=== PATIENT | male | born 1965 | race Caucasian/White ===

== ENCOUNTER 2017-04-30 22:26 | Inpatient (IN) | payer OTHER ==
[~2017-04-30] VITALS: Ht 177.8 cm; Wt 105.0 kg
[2017-04-30 22:28] VITALS: BP 172/104
[2017-04-30 23:11] LABS: URINE BILIRUBIN 2+ (Negative); URINE BLOOD 3+ (Negative); URINE COLOR BROWN; URINE GLUCOSE-RANDOM* NEGATIVE (Negative); URINE KETONES TRACE (Negative); URINE NITRITE POSITIVE (Negative); URINE PROTEIN (DIPSTICK) 2+ (Negative); URINE SPECIFIC GRAVITY >= 1.030 (1.003-1.035)
[2017-04-30 23:17] LABS: ABSOLUTE NEUTROPHILS 13.1 thou/uL (1.4-8.2); BASOPHILS 0.8 % (0.0-2.0); EOSINOPHILS 3.3 % (0.0-3.0); HEMATOCRIT 45.4 % (42.0-52.0); HEMOGLOBIN 15.4 gm/dL (14.0-18.0); LYMPHOCYTES 19.9 % (24.0-44.0); MCH 31.3 pg (26.0-34.0); MCHC 33.9 g/dL (28.0-37.0); MCV 92.4 fL (80.0-100.0); MONOCYTES 7.6 % (1.0-8.0); PLATELET COUNT 237 thou/uL (150-400); POLYS 68.4 % (36.0-66.0); RBC 4.91 mil/uL (4.50-6.00); RDW 13.7 % (10.5-14.5); WBC 19.2 thou/uL (4.0-11.0)
[2017-04-30 23:18] LABS: MANUAL DIFF NO
[2017-04-30 23:18] LABS: ICTOTEST (BILI CONFIRMATORY) Positive (Negative)
[2017-04-30 23:20] LABS: CALCIUM 9.3 mg/dL (8.5-10.1); CREATININE 1.1 mg/dL (0.7-1.3); POTASSIUM 3.7 mmol/L (3.5-5.1)
[2017-04-30 23:26] LABS: CALCIUM OXALATE 4-10 Moderate /LPF (None Seen); CASTS None Seen /LPF (None Seen); CRYSTALS None Seen /LPF (None Seen); SQUAMOUS None Seen /LPF (0-3); URINE RBC >20 Many /HPF (0-2)
[2017-05-01] VITALS (7 sets, daily range): BP systolic 132–181; BP diastolic 73–99
[2017-05-01 04:40] LABS: HEMATOCRIT 43.1 % (42.0-52.0); HEMOGLOBIN 14.6 gm/dL (14.0-18.0); MCH 31.2 pg (26.0-34.0); MCHC 33.8 g/dL (28.0-37.0); MCV 92.3 fL (80.0-100.0); RBC 4.67 mil/uL (4.50-6.00); RDW 13.7 % (10.5-14.5); WBC 18.3 thou/uL (4.0-11.0)
[2017-05-01 05:04] LABS: ALBUMIN 3.4 g/dL (3.4-5.0); ALKALINE PHOSPHATASE 79 U/L (46-116); ANION GAP 8 mmol/L (7-16); BUN 15 mg/dL (7-18); CHLORIDE 105 mmol/L (98-107); CHOLESTEROL 210 mg/dL (<200); CO2 27 mmol/L (21-32); CREATININE 1.3 mg/dL (0.7-1.3); GLUCOSE 134 mg/dL (74-106); HDL CHOLESTEROL 38 mg/dL (>40); LDL CHOLESTEROL 149 mg/dL (<100); SGOT 18 U/L (15-37); SGPT 34 U/L (30-65); SODIUM 140 mmol/L (136-145); TC:HDL 5.5 Ratio (Not establshd); TOTAL BILIRUBIN 0.4 mg/dL (<0.1-1.0); TRIGLYCERIDE 116 mg/dL (<150); VLDL 23 mg/dL (<40)
[2017-05-02 04:00] VITALS: BP 142/83
[2017-05-02 07:49] VITALS: BP 135/94
[2017-05-02 11:08] VITALS: BP 135/94
[2017-05-02 11:26] VITALS: BP 135/94
== END 2017-05-02 11:26 | disposition home or self-care (01) | DRG 694 ==
LOC: ER 22:26 → EROBS 05-01 00:03 → 4E 05-01 00:28
PROVIDERS: Emergency Medicine; Nurse Practitioner Family
DX: N13.2 Hydronephrosis with renal and ureteral calculous obstruction (principal); N39.0 Urinary tract infection, site not specified; D72.829 Elevated white blood cell count, unspecified; K21.9 Gastro-esophageal reflux disease without esophagitis; I10 Essential (primary) hypertension; F17.210 Nicotine dependence, cigarettes, uncomplicated; R03.0 Elevated blood-pressure reading, without diagnosis of hypertension; E78.5 Hyperlipidemia, unspecified; Z79.899 Other long term (current) drug therapy; Z82.49 Family history of ischemic heart disease and other diseases of the circulatory system; Z83.3 Family history of diabetes mellitus
CPT/HCPCS: 10084

== ENCOUNTER 2017-12-27 06:52 | Emergency (ER) | payer OTHER ==
[~2017-12-27] VITALS: Ht 177.8 cm; Wt 106.6 kg
[2017-12-27 07:16] LABS: ABSOLUTE NEUTROPHILS 8.1 thou/uL (1.4-8.2); BASOPHILS 0.6 % (0.0-2.0); EOSINOPHILS 3.2 % (0.0-3.0); HEMATOCRIT 47.9 % (42.0-52.0); HEMOGLOBIN 16.2 gm/dL (14.0-18.0); LYMPHOCYTES 23.4 % (24.0-44.0); MCH 31.3 pg (26.0-34.0); MCHC 33.9 g/dL (28.0-37.0); MCV 92.2 fL (80.0-100.0); MONOCYTES 6.5 % (1.0-8.0); PLATELET COUNT 255 thou/uL (150-400); POLYS 66.3 % (36.0-66.0); WBC 12.3 thou/uL (4.0-11.0)
[2017-12-27 07:21] LABS: CALCIUM 9.4 mg/dL (8.5-10.1); POTASSIUM 4.1 mmol/L (3.5-5.1)
[2017-12-27 08:02] LABS: URINE BILIRUBIN NEGATIVE (Negative); URINE BLOOD TRACE (Negative); URINE CLARITY CLEAR; URINE COLOR YELLOW; URINE GLUCOSE-RANDOM* NEGATIVE (Negative); URINE KETONES NEGATIVE (Negative); URINE LEUKOCYTES-REFLEX NEGATIVE (Negative); URINE NITRITE-REFLEX NEGATIVE (Negative); URINE PROTEIN (DIPSTICK) NEGATIVE (Negative); URINE UROBILINOGEN 0.2 E.U./dl (0.2-1.0)
[2017-12-27] MEDS ORDERED: SENNA-DOCUSATE1 EACH PO (08:24)
[2017-12-27] MEDS ORDERED: IBUPROFEN 600600 M1 PO (08:24)
[2017-12-27] MEDS ORDERED: NORCO 5-325 TA1 EACH PO (08:24)
[2017-12-27 08:51] VITALS: BP 161/94
== END 2017-12-27 08:52 | disposition left against medical advice (07) ==
LOC: ER 06:52
PROVIDERS: Emergency Medicine
DX: R10.31 Right lower quadrant pain (principal); R31.29 Other microscopic hematuria; K21.9 Gastro-esophageal reflux disease without esophagitis; F17.210 Nicotine dependence, cigarettes, uncomplicated; Z87.442 Personal history of urinary calculi

== ENCOUNTER 2019-07-17 07:30 | Inpatient (IN) | payer OTHER ==
[~2019-07-17] VITALS: Ht 177.8 cm; Wt 104.9 kg
[~2019-07-17 07:30] MED LIST: IBUPROFEN 600600 M1 PO; NORCO 5-325 TA1 EACH PO; SENNA-DOCUSATE1 EACH PO
[2019-07-17 07:39] VITALS: BP 153/108
[2019-07-17 08:29] LABS: ABSOLUTE NEUTROPHILS 6.3 thou/uL (1.4-8.2); BASOPHILS 1.2 % (0.0-2.0); EOSINOPHILS 6.4 % (0.0-3.0); HEMATOCRIT 45.2 % (42.0-52.0); HEMOGLOBIN 15.9 gm/dL (14.0-18.0); LYMPHOCYTES 24.1 % (24.0-44.0); MCH 32.2 pg (26.0-34.0); MCHC 35.1 g/dL (28.0-37.0); MCV 91.8 fL (80.0-100.0); PLATELET COUNT 246 thou/uL (150-400); POLYS 61.3 % (36.0-66.0); RBC 4.93 mil/uL (4.50-6.00); RDW 13.3 % (10.5-14.5); WBC 10.4 thou/uL (4.0-11.0)
[2019-07-17 08:36] LABS: CREATININE 0.9 mg/dL (0.7-1.3); POTASSIUM 4.3 mmol/L (3.5-5.1)
[2019-07-17 08:46] LABS: APTT 30.7 Seconds (24.5-32.8); D-DIMER 0.34 ug/mLFEU (0.19-0.50); PROTIME 9.7 Seconds (9.3-11.4)
[2019-07-17 08:47] LABS: ALBUMIN 3.6 g/dL (3.4-5.0); MAGNESIUM 1.9 mg/dL (1.8-2.4); TOTAL BILIRUBIN 0.3 mg/dL (<0.1-1.0); TOTAL PROTEIN 7.3 g/dL (6.4-8.2)
[2019-07-17 08:52] LABS: TROPONIN-I 1.92 ng/mL (<0.06)
[2019-07-17 09:52] VITALS: BP 149/93
[2019-07-17 10:37] VITALS: BP 140/93
[2019-07-17 11:04] VITALS: BP 161/100
--- NOTE | 2019-07-17 12:07 | 2DMMODE ---
[facility] [address] [place] [address] 2 D/M-MODE ECHOCARDIOGRAM Name: PINAUMESH Room #: 215-P [facility] IN .R.#: [id number] Admission: 07/17/19 Attend Phys: Raymon Potter, Discharge: Date of : 69 Date of Service: 07/17/19 1206 Report #: [id number] THIS REPORT FOR: //name// APPROVED REPORT Study performed: 07/17/2019 11:25:57 EXAM: Comprehensive 2D, Doppler, and color-flow Echocardiogram Patient Location: ER Room #: 9 Status: routine BSA: 2.24 HR: 85 bpm BP: 149/93 mmHg Rhythm: NSR Other Information Study Quality: Adequate Indications Elevated Troponin Chest Pain Hypertension/HDD nstemi 2D Dimensions RVDd: 34.98 mm IVSd: 12.82 (7-11mm) LVOT Diam: 20.59 (18-24mm) LVDd: 53.46 mm PWd: 14.64 (7-11mm) Ascending Ao: 28.46 (22-36mm) LVDs: 36.18 (25-40mm) Aortic Root: 28.23 mm IVC: 16.00 mm Volumes Left Atrial Volume (Systole) Single Plane 4CH: 58.26 mL Single Plane 2CH: 46.18 mL LA ESV Index: 25.00 mL/m2 Aortic Valve AoV Peak Jez.: 1.34 m/s AO Peak Gr.: 7.13 mmHg LVOT Max P.04 mmHg LVOT Max V: 1.00 m/s ELIF Vmax: 2.50 cm2 Mitral Valve [facility] [address] [address] 2 D/M-MODE ECHOCARDIOGRAM Name: SILVANAUMESH Room #: 215-P [facility] IN [facility]#: [id number] Admission: 07/17/19 Attend Phys: Raymon Potter, Discharge: Date of : 69 Date of Service: 07/17/19 1206 Report #: [id number] E/A Ratio: 0.7 MV Decel. Time: 210.15 ms MV E Max Jez.: 0.84 m/s MV A Jez.: 1.18 m/s MV PHT: 60.94 ms IVRT: 119.95 ms Pulmonary Valve PV Peak Jez.: 0.80 m/s PV Peak Gr.: 2.57 mmHg Pulmonary Vein P Vein S: 0.48 m/s P Vein A: 0.25 m/s P Vein D: 0.28 m/s P Vein A Dur.: 106.1 msec P Vein S/D Ratio: 1.71 Left Ventricle The left ventricle is normal size. There is hypokinesis in the apical wall. Mild concentric left ventricular hypertrophy. The overall left ventricular systolic function appears normal. LVEF is 55%. Grade I - abnormal relaxation pattern. Right Ventricle The right ventricle is normal size. The right ventricular systolic function is normal. Atria The left atrium size is normal. Right atrium is at the upper limits of normal. Aortic Valve The aortic valve is normal in structure. No aortic regurgitation is present. There is no aortic valvular stenosis. Mitral Valve The mitral valve is normal in structure. There is no mitral valve regurgitation noted. No evidence of mitral valve stenosis. Tricuspid Valve The tricuspid valve is normal in structure. There is no tricuspid valve regurgitation noted. Pulmonic Valve The pulmonary valve is normal in structure. There is no pulmonic valvular regurgitation. [employer] [facility] [address] [place] [address] 2 D/M-MODE ECHOCARDIOGRAM Name: UMESH PINA Room #: 215-P [facility] IN M.R.#: [id number] Admission: 07/17/19 Attend Phys: Raymon Potter, Discharge: Date of : 69 Date of Service: 07/17/19 1206 Report #: [id number] The aortic root is normal in size. IVC is normal in size and collapses >50% with inspiration. Pericardium There is no pericardial effusion. <Conclusion> The left ventricle is normal size. Mild concentric left ventricular hypertrophy. The overall left ventricular systolic function appears normal. Grade I - abnormal relaxation pattern. The right ventricle is normal size. The left atrium size is normal. The aortic valve is normal in structure. There is no mitral valve regurgitation noted. There is no tricuspid valve regurgitation noted. <ELECTRONICALLY SIGNED> By: Cristiano Batista MD 07/17/19 1206 05 05 Cristiano Batista MD /INF
[2019-07-17 13:45] VITALS: BP 148/95
--- NOTE | 2019-07-17 13:45 | NUR ---
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 VSS, NSR, LUNGS CLEAR RA SART IS 98%. R GROIN CATH SITE INTACT NO HEMATOMA OR BRUIT HEARD. INSTRUCTED BR X 3 HOURS. SEE DATA FLOW SHEET FOR VS AND GROIN CHECKS. WILL CONTINUE TO MONITER AND CARE FOR PT PER PLAN OF CARE
--- NOTE | 2019-07-17 15:19 | CATHLAB ---
[facility] [address] [place] [address] INVASIVE PROCEDURE REPORT Name: UMESH PINA Room #: 215-P ADM IN M.R.#: [id number] Admission: 07/17/19 Attend Phys: Raymon Potter, Discharge: Date of : 69 Date of Service: 07/17/19 1518 Report #: [id number] THIS REPORT FOR: //name// APPROVED REPORT Study performed: 07/17/2019 12:02:07 Patient Details The patient is a 54 year-old male Event Personnel Cristiano Batista Mainframe Consultant, Cristiano Batista Mainframe Consultant Procedures Performed Left Heart Cath w/or w/o Coronaries [id number] [facility] [address] w/wo Plasty Single LAD [id number] Indication Non-STEMI , Dyspnea, Chest pain Risk Factors Hypercholesterolemia, Hypertension, Tobacco History () Procedure Narrative The Right Groin^ was infiltrated with 1% Lidocaine subcutaneous anesthesia. A PINNACLE 6FR Sheath #[id number] sheath was inserted into the RFA^. Coronary angiography was performed using coronary diagnostic catheters. The right coronary system was accessed and visualized with a JR4 catheter. The left coronary system was accessed and visualized with a JL4 catheter. The left ventricle was accessed and visualized with a PIGTAIL catheter. Left ventricular/Aortic Valve gradient assessed via catheter pullback. Left ventriculogram was performed in CARMONA projection. Closure device was deployed with a 6 Fr MYNX CONTROL 6F/7F #[id number]. The patient tolerated the procedure well and there were no complications associated with the procedure. There was no hematoma. Intraoperative Conscious Sedation Sedation start time: 12.18 Case end Time: 13:08 Fentanyl 100 mcg Versed 2 mg Fluoro Time: 10:09 minutes Dose: DAP 63146 cGycm2 2030 mGy [facility] [place] [address] INVASIVE PROCEDURE REPORT Name: UMESH PINA Room #: 215-P [facility] IN .R.#: [id number] Admission: 07/17/19 Attend Phys: Raymon Potter, Discharge: Date of : 69 Date of Service: 07/17/19 1518 Report #: [id number] Contrast Type and Amount: Omnipaque 220 ml Coronary Angiography The patient's coronary anatomy is co- dominant. Diagnostic Cath Left Main This is a large caliber vessel, patent with no flow-limiting lesions. LAD There is a moderate to large size caliber vessel, traversing the anterior wall and wrapping around the apex. There is a severe occlusion in the proximal segment, 95%. Diagonal 1 Originates from the midsegment of the LAD, patent with no flow-limiting lesions. Diagonal 2 This is a patent vessel, with no flow-limiting lesions. Circumflex This is a codominant vessel, with mild disease in the mid segment, 30%. OM1 This is a moderate size caliber vessel, divides into 2 branches. This vessel is patent with no flow-limiting lesions. OM2 Branches from the distal left circumflex artery, patent with no flow-limiting lesions. Right Coronary This is a patent vessel, with mild disease in the proximal segment, 20%. R PDA This is a patent vessel, with mild disease in the mid segment, 30%. Left Ventriculography The left ventricle is normal in size with abnormal contractility. The left ventricular ejection fraction is estimated to be 40%. There is hypokinesis of the anterior and apical regions. Hemodynamics The aortic pressure is 142/90 mmHg with a mean of 111 mmHg. The left ventricular pressure is 134/17 mmHg with a mean of mmHg. The left ventricular end diastolic pressure is 29 mmHg. There was no gradient across the aortic valve upon pullback. Pullback from the left ventricle to the aorta revealed no gradient across the aortic valve. PCI Technique Lesion Percutaneous coronary intervention was performed on the proximal left anterior descending artery segment. The lesion stenosis prior to intervention was 95% with ELSY 3 flow. A DeciZiumTA 6FR XB 3.5 #[id number] Guide Catheter was used to engage the ostium. A Luge Wire .014 x 182CM #[id number] Interventional Guidewire was used to cross the lesion. [facility] [address] [place] [address] INVASIVE PROCEDURE REPORT Name: UMESH PINA Room #: 215-P ADM IN M.R.#: [id number] Admission: 07/17/19 Attend Phys: Raymon Potter, Discharge: Date of : 69 Date of Service: 07/17/19 1518 Report #: [id number] BALLOON DILATION A Balloon catheter Euphora RX 2.5 x 15 #[id number] was inserted and inflated up to 8.00atm for 17seconds. STENT DEPLOYMENT A drug-eluting stent RESOLUTE NIDIA RX 3.0 X 22 #[id number] was inserted and inflated up to 14.00atm for 12seconds. POST STENT DEPLOYMENT BALLOON DILATION A Balloon catheter TREK NC RX 3.25 X 12 #[id number] was inserted and inflated up to 14.00atm for 19seconds. Additional Inflation: 16.00atm for 12seconds. Final angiography reveals 0 % stenosis with ELSY 3 flow. Conclusion 1. Successful insertion of a drug-eluting stent into the proximal LAD stenosis. 2. Codominant left circumflex system with mild disease. 3. Patent RCA vessel with mild disease. 4. Mild to moderate segmental LV dysfunction. 5. Recommend dual antiplatelet therapy and aggressive risk factor management. <ELECTRONICALLY SIGNED> By: Cristiano Batista MD 07/17/19 1518 1518 1518 Cristiano Batista MD /INF
--- NOTE | 2019-07-17 15:52 | NUR ---
VSS REMAINS NSR. R GROIN CATH SITE WITHOUT HEMATOMA, NO BRUIT HEARD. NOC/O CHEST PAIN . WILL CONTINUE TO MONITER AND CARE FOR PTPER PLANOFCARE
[2019-07-17 20:20] VITALS: BP 134/81
[2019-07-18] VITALS (7 sets, daily range): BP systolic 119–163; BP diastolic 68–106
--- NOTE | 2019-07-18 01:47 | NUR ---
ASSUMED CARE OF PATIENT AT 1900. VSS, AFEBRILE. DENIES PAIN, SOA OR N/V. SMOKING CESSATION EDUCATION GIVEN, STATES HE LIKES SMOKING AND HAS NO PLANS TO QUIT. CALLS OUT APPROPRIATELY. UP AD RYAN, PROGRESSING TOWARDS POC GOALS.
[2019-07-18 05:22] LABS: HEMATOCRIT 44.7 % (42.0-52.0); HEMOGLOBIN 15.1 gm/dL (14.0-18.0); MCH 31.1 pg (26.0-34.0); MCHC 33.8 g/dL (28.0-37.0); RBC 4.86 mil/uL (4.50-6.00); RDW 13.3 % (10.5-14.5)
[2019-07-18 05:35] LABS: CHOLESTEROL 217 mg/dL (<200); HDL CHOLESTEROL 38 mg/dL (>40); LDL CHOLESTEROL 156 mg/dL (<100); TC:HDL 5.7 Ratio (Not establshd); TRIGLYCERIDE 117 mg/dL (<150); VLDL 23 mg/dL (<40)
[2019-07-18 05:40] LABS: ALBUMIN 3.4 g/dL (3.4-5.0); CALCIUM 9.4 mg/dL (8.5-10.1); CREATININE 0.7 mg/dL (0.7-1.3); POTASSIUM 4.1 mmol/L (3.5-5.1); TOTAL BILIRUBIN 0.3 mg/dL (<0.1-1.0); TOTAL PROTEIN 7.5 g/dL (6.4-8.2)
[2019-07-18 06:01] LABS: SERUM ASSESSMENT Clear
[2019-07-18 06:02] LABS: TROPONIN-I 2.69 ng/mL (<0.06)
--- NOTE | 2019-07-18 16:10 | NUR ---
VSS REMAINS NSR TO ST 90-110 DEPENDING ON ACTIVITY. BP 120-150/80-100. LUNGS CLEAR, RA SAT IS 96%. PT ED RE: SMOKING CESSATION RECEIVED BY PT. PT UP AMBULATING IN HALLS AND TOLERATED WELL, WITH SOME INCREASE IN HR 90-116, NO C/O CHEST PAIN. WILL CONTINUE TO MONITER AND CARE FOR PT PER PLAN PF CARE
--- NOTE | 2019-07-18 17:18 | EKG ---
[address] [place] [address] ELECTROCARDIOGRAM REPORT Name: UMESH PINA Room #: 215-P ADM IN M.R.#: [id number] Admission: 07/17/19 Attend Phys: Raymon Potter MD Discharge: Date of : 69 Report #: [id number] THIS REPORT FOR: //name// [facility] ED Test Date: 2019-07-17 Test Time: 07:38:15 Pat Name: UMESH PINA Department: Room: 215 Gender: M Superintendent Institution: : 1965 Requested By: Jack Canela Order Number: [id number] MD: Johnson Hawk Measurements Intervals [place] Rate: 94 P: 45 ND: 143 QRS: 46 QRSD: 87 T: 53 QT: 321 QTc: 402 Interpretive Statements Sinus rhythm Normal tracing No previous ECG available for comparison Electronically Signed On 07-18-2019 17:17:48 CDT by Johnson Hawk [email or web address] <ELECTRONICALLY SIGNED> By: Johnson Hawk MD, [facility] 07/18/19 1717 0738 0738 Johnson Hawk MD, FACC /EPI
--- NOTE | 2019-07-18 17:23 | EKG ---
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
--- NOTE | 2019-07-18 17:30 | EKG ---
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
--- NOTE | 2019-07-19 03:25 | NUR ---
ASSUMED CARE OF PATIENT AT 1900. VSS, AFEBRILE. UP WALKING AROUND THE UNIT SEVERAL TIMES. DENIES PAIN, SOA OR N/V. ADMITS HE DOES NOT WANT TO QUIT SMOKING AND JUST WANTS A CIGARETTE. EDUCATION REINFORCED. ANTICIPATED DC TODAY. PROGRESSING TOWARDS POC.
[2019-07-19 04:45] VITALS: BP 128/86
[2019-07-19 08:20] VITALS: BP 121/80
--- NOTE | 2019-07-19 08:26 | NUR ---
ASSUMED CARE OF PT APPROX 0715, PT IS A&0X4, ANTICIPATING D/C THIS A.M. NO C/O CHEST PAIN JUST SORENESS FROM R GROIN RESIDUAL, NO REDNESS/HEMATOMA FROM PROCEDURE SEVERAL DAYS AGO. UP AD RYAN, ENCOURAGED HIM TO USE CALL LIGHT FOR ANY NEEDS. SPOUSE AT BEDSIDE, GAVE SNACKS AND WARM BLANKET TO PT LIKES ROOM COLD. TALKATIVE AND IN GOOD SPIRITS AWAITING BFAST.
[2019-07-19 09:13] LABS: HEMATOCRIT 47.8 % (42.0-52.0); HEMOGLOBIN 15.8 gm/dL (14.0-18.0); MCH 30.8 pg (26.0-34.0); MCHC 33.1 g/dL (28.0-37.0); RBC 5.14 mil/uL (4.50-6.00); RDW 13.6 % (10.5-14.5); WBC 14.1 thou/uL (4.0-11.0)
[2019-07-19 09:23] LABS: CALCIUM 9.8 mg/dL (8.5-10.1); MAGNESIUM 1.9 mg/dL (1.8-2.4); POTASSIUM 4.4 mmol/L (3.5-5.1)
[2019-07-19] MEDS ORDERED: EFFIENT10 MG PO (10:02)
[2019-07-19] MEDS ORDERED: METOPROLOL SUCC50 MG PO (10:04)
[2019-07-19] MEDS ORDERED: LIPITOR40 MG PO (10:04)
[2019-07-19] MEDS ORDERED: ASPIR 8181 MG PO (10:05)
[2019-07-19 10:16] VITALS: BP 121/80
--- NOTE | 2019-07-19 11:09 | NUR ---
PT ASKED FOR A NOTE TO RETURN TO WORK WITHOUT RESTRICTIONS, CALLED DR. GUAJARDO AND HE DEFERRED TO HOSPITALIST HE IS ON THE PREMISES. DR KUNZ WAS HESITANT TO DO SO. LET HIM KNOW DR. GUAJARDO AGREED TO NO RESTRICTIONS. SIGNED RX, SEE CHART, WITH PHYSICIANS NAME AND RN AFTERWARDS.
== END 2019-07-19 11:14 | disposition home or self-care (01) | DRG 246 ==
LOC: ER 07:30 → 2N 09:21 → EROBS 09:21 → 2N 10:37 → ENTRNSPT 07-19 11:07 → EDTRNSPTSTS 07-19 11:09 → 2N 07-19 11:14
PROVIDERS: Emergency Medicine; Internal Medicine Cardiovascular Disease; Nurse Practitioner; ADMIT Internal Medicine
PROC: B2151ZZ Fluoroscopy of Left Heart using Low Osmolar Contrast (ICD-10-PCS; principal; 2019-07-17)
PROC: B2111ZZ Fluoroscopy of Multiple Coronary Arteries using Low Osmolar Contrast (ICD-10-PCS; principal; 2019-07-17)
PROC: 4A023N7 Measurement of Cardiac Sampling and Pressure, Left Heart, Percutaneous Approach (ICD-10-PCS; principal; 2019-07-17)
PROC: 027034Z Dilation of Coronary Artery, One Artery with Drug-eluting Intraluminal Device, Percutaneous Approach (ICD-10-PCS; principal; 2019-07-17)
DX: I21.4 Non-ST elevation (NSTEMI) myocardial infarction (principal); I50.33 Acute on chronic diastolic (congestive) heart failure; K21.9 Gastro-esophageal reflux disease without esophagitis; F17.210 Nicotine dependence, cigarettes, uncomplicated; E78.5 Hyperlipidemia, unspecified; I10 Essential (primary) hypertension; E78.00 Pure hypercholesterolemia, unspecified; I25.5 Ischemic cardiomyopathy; Z87.442 Personal history of urinary calculi; Z79.82 Long term (current) use of aspirin; Z79.899 Other long term (current) drug therapy; Z82.49 Family history of ischemic heart disease and other diseases of the circulatory system; Z83.3 Family history of diabetes mellitus; Z71.6 Tobacco abuse counseling
CPT/HCPCS: 10081; 10194

== ENCOUNTER → 2019-08-17 | Outpatient (CLI) | payer OTHER ==
[~2019-08-17] VITALS: Ht 177.8 cm; Wt 104.3 kg
[~2019-08-17] MED LIST changes: +ASPIR 8181 MG PO; +CHANTIX1 MG PO; +COZAAR 25 MG TA25 M1 PO; +EFFIENT10 MG PO; +LIPITOR40 MG PO; +METOPROLOL SUCC50 MG PO
[2019-08-17 10:17] VITALS: BP 143/87
== END | disposition home or self-care (01) ==
LOC: CATH 09:43
DX: I70.213 Atherosclerosis of native arteries of extremities with intermittent claudication, bilateral legs (principal); I77.1 Stricture of artery; I70.1 Atherosclerosis of renal artery; I10 Essential (primary) hypertension; I25.10 Atherosclerotic heart disease of native coronary artery without angina pectoris; E78.5 Hyperlipidemia, unspecified; K21.9 Gastro-esophageal reflux disease without esophagitis; I42.9 Cardiomyopathy, unspecified; I25.2 Old myocardial infarction; F17.210 Nicotine dependence, cigarettes, uncomplicated; E78.00 Pure hypercholesterolemia, unspecified; Z87.442 Personal history of urinary calculi; Z79.899 Other long term (current) drug therapy; Z82.49 Family history of ischemic heart disease and other diseases of the circulatory system; Z98.890 Other specified postprocedural states; Z79.82 Long term (current) use of aspirin

== ENCOUNTER → 2019-08-30 | Outpatient (CLI) | payer OTHER ==
[~2019-08-30] VITALS: Ht 177.8 cm; Wt 104.3 kg
[2019-08-30 07:09] VITALS: BP 122/77
== END | disposition home or self-care (01) ==
LOC: CATH 06:24
DX: I70.211 Atherosclerosis of native arteries of extremities with intermittent claudication, right leg (principal); I11.0 Hypertensive heart disease with heart failure; I50.9 Heart failure, unspecified; I25.2 Old myocardial infarction; I42.9 Cardiomyopathy, unspecified; E78.5 Hyperlipidemia, unspecified; E66.09 Other obesity due to excess calories; E78.00 Pure hypercholesterolemia, unspecified; F17.210 Nicotine dependence, cigarettes, uncomplicated; Z87.442 Personal history of urinary calculi; Z98.890 Other specified postprocedural states; Z79.899 Other long term (current) drug therapy; Z79.82 Long term (current) use of aspirin

== ENCOUNTER → 2019-12-14 | Outpatient (CLI) | payer OTHER | LOC: SJCVCIMAG 09:34 | DX: I65.23 Occlusion and stenosis of bilateral carotid arteries (principal); E04.2 Nontoxic multinodular goiter; I73.9 Peripheral vascular disease, unspecified; I25.10 Atherosclerotic heart disease of native coronary artery without angina pectoris; I10 Essential (primary) hypertension; E78.00 Pure hypercholesterolemia, unspecified; K21.9 Gastro-esophageal reflux disease without esophagitis; F17.200 Nicotine dependence, unspecified, uncomplicated; Z79.899 Other long term (current) drug therapy ==

== ENCOUNTER → 2020-02-29 | Outpatient (CLI) | payer OTHER ==
--- NOTE | 2020-03-06 13:08 | PATH ---
[facility] [place] [address] PATHOLOGY RPT PROCEDURE Name: UMESH PINA Room #: [facility]#: [id number] Admission: 02/29/20 Date of : 69 Discharge: Report #: [id number] Path Case #: [id number] Note [facility] Accession Number: [id number] TESTS RESULT FLAG UNITS REF RANGE LAB Clinician Provided Cytology Information No. of containers..01 Other (Miscellaneous) Source: RIGHT THYROID DIAGNOSIS: RIGHT THYROID NEGATIVE FOR MALIGNANT EPITHELIAL CELLS. BETHESDA CATEGORY II. SPECIMEN CONSISTS OF ADEQUATE FOLLICULAR CELLS, HEMOSIDERIN-LADEN MACROPHAGES, COLLOID, AND BLOOD. THIS PATTERN IS COMPATIBLE WITH A COLLOID NODULE. SCANT COLLOID IS PRESENT. THIS INTERPRETATION INCLUDES EVALUATION OF A CELL BLOCK. NEGATIVE FOR NUCLEAR FEATURES OF PAPILLARY THYROID CARCINOMA. Comment: The differential diagnosis includes a partially sampled adenomatoid nodule or an adenoma. Nuclear features of papillary thyroid carcinoma are not identified. Please note sample may not be entirely promotional representative; correlate clinically and follow-up as indicated. Pathologist ICD10: 02 E04.1 Signed out by: Agatha Correa MD, Pathologist NPI- [id number] Performed by: Angie Pham, Credit Risk Manager (LINNEA) Gross description: 01 25ML, CLEAR RED, 2FX /LCS 02/29/2020 1643 Local FLAG LEGEND: L-Low Normal,H-High Normal,LL-Alert Low,HH-Alert High <-Panic Low,>-Panic High,A-Abnormal,AA-Critical Abnormal Performed at: [address] [facility] [address] [place] [address] Jim Marvin MD, [address] [facility] [address] [address] Agatha Correa MD, Specimen Comment: A courtesy copy of this report has been sent to [phone], [address] [address] PATHOLOGY RPT PROCEDURE Name: UMESH PINA Room #: REG [facility]#: [id number] Admission: 02/29/20 Date of : 69 Discharge: Report #: [id number] Path Case #: [id number] Specimen Comment: [id number] Specimen Comment: Report sent to / DR QUIROZ Specimen Comment: A duplicate report has been generated due to demographic updates. Performed at: [facility] [address] [facility] [address], [place], [place] [id number] MD Jim Marvin MD Phone: [phone]
== END | disposition home or self-care (01) ==
LOC: ULTRA 08:43
DX: E04.2 Nontoxic multinodular goiter (principal); Z98.890 Other specified postprocedural states; Z79.899 Other long term (current) drug therapy

== ENCOUNTER → 2020-03-26 | Outpatient (CLI) | payer OTHER | LOC: SJCVCIMAG 09:40 | DX: I70.203 Unspecified atherosclerosis of native arteries of extremities, bilateral legs (principal); I25.10 Atherosclerotic heart disease of native coronary artery without angina pectoris; I10 Essential (primary) hypertension; E78.00 Pure hypercholesterolemia, unspecified; K21.9 Gastro-esophageal reflux disease without esophagitis; I25.2 Old myocardial infarction; Z82.49 Family history of ischemic heart disease and other diseases of the circulatory system; Z87.891 Personal history of nicotine dependence; Z79.82 Long term (current) use of aspirin; Z79.899 Other long term (current) drug therapy ==

== ENCOUNTER 2020-03-29 09:46 | Observation (INO) | payer OTHER ==
[~2020-03-29] VITALS: Ht 177.8 cm; Wt 117.0 kg
[2020-03-29 10:18] VITALS: BP 128/87
--- NOTE | 2020-03-29 10:20 | NUR ---
2 CC OF AIR WITHDRAWN FROM RADIAL CLOSURE DEVICE
[2020-03-29 10:21] LABS: HEMATOCRIT 40.7 % (42.0-52.0); HEMOGLOBIN 13.7 gm/dL (14.0-18.0); MCH 30.9 pg (26.0-34.0); MCHC 33.8 g/dL (28.0-37.0); MCV 91.6 fL (80.0-100.0); RBC 4.45 mil/uL (4.50-6.00); RDW 13.1 % (10.5-14.5); WBC 10.5 thou/uL (4.0-11.0)
[2020-03-29] MEDS ORDERED: ACIPHEX 20 MG T20 MG PO (10:31)
[2020-03-29 10:47] LABS: CALCIUM 9.1 mg/dL (8.5-10.1); CREATININE 1.1 mg/dL (0.7-1.3); POTASSIUM 4.1 mmol/L (3.5-5.1)
--- NOTE | 2020-03-29 15:17 | NUR ---
REC PT AT 1500, HEMOSTATIS REPORTED BEING ACHIEVED AT 1445. PT IS A&0X4, ORDERS ARE FOR HIM TO DEPART AT 1800 WHEN HE'S ALLOWED TO GET UP. HE'LL CALL SPOUSE AT THAT TIME FOR DEPARTURE. HAVING PT SIGN INSTRUCTION SHEET AND WILL PLACE A COPY IN HIS CHART. HAS TWO URINALS, NO C/O PAIN OR NEEDS AT THIS TIME OTHER THAN HIS WATER. NO HUNGER AT THIS TIME, HE'S WAITING FOR FOOD HE LEAVES THE HOSPITAL. IVF RUNNING, AND PT IS AWARE OF ALL RESTRICTIONS AND IS COMPLYING. HE STATES HE REMEMBERS ALL THIS FROM BEFORE. SEE SEPARATE INTERVENTIONS FOR ASSESSMENTS; NOT FULL ADMISSION. WILL CONTINUE TO MONITOR EVERY 15 MIN X 4, ETC.
--- NOTE | 2020-03-29 17:43 | NUR ---
DISCHARGE OF PT ON FLOOR SINCE ABOUT 15:00 AFTER PROCEDURE. ORDERS TO AMB AT 18:00, VS ALL WNL FOR PT, INCREASED A BIT W/LOUD JOVIAL PHONE CONVERSATION. NO BLEEDING, HEMATOMA, CIRCULATION REMAINS IN THE SAME IN BLE. IV WILL BE REMOVED AND PT HAS ALL INSTRUCTIONS, DID NOT WANT A DIET ORDER HE STATES HE'LL EAT WHEN HE LEAVES, DECLINED ANY SNACKS. SPOUSE WILL BE AT ED AT APPROX 1815. PT HAS ALL PAPERWORK AND CARDS
== END 2020-03-29 18:15 | disposition home or self-care (01) ==
LOC: CATH 09:46 → 2N 15:20 → CATH 16:15 → 2N 18:15
PROVIDERS: ADMIT Nuclear Medicine Nuclear Cardiology
DX: I70.213 Atherosclerosis of native arteries of extremities with intermittent claudication, bilateral legs (principal); I21.4 Non-ST elevation (NSTEMI) myocardial infarction; I10 Essential (primary) hypertension; K21.9 Gastro-esophageal reflux disease without esophagitis; F17.210 Nicotine dependence, cigarettes, uncomplicated; E78.5 Hyperlipidemia, unspecified

== ENCOUNTER → 2020-04-03 | Outpatient (CLI) | payer OTHER ==
[~2020-04-03] VITALS: Ht 177.8 cm; Wt 117.0 kg
[~2020-04-03] MED LIST changes: +ACIPHEX 20 MG T20 MG PO
[2020-04-03 07:08] VITALS: BP 157/87
== END | disposition home or self-care (01) ==
LOC: CATH 06:29
DX: I70.211 Atherosclerosis of native arteries of extremities with intermittent claudication, right leg (principal); I25.2 Old myocardial infarction; E78.00 Pure hypercholesterolemia, unspecified; I42.9 Cardiomyopathy, unspecified; K21.9 Gastro-esophageal reflux disease without esophagitis; Z98.890 Other specified postprocedural states; Z79.899 Other long term (current) drug therapy; Z87.442 Personal history of urinary calculi

== ENCOUNTER → 2020-07-09 | Outpatient (CLI) | payer OTHER | LOC: SJCVCIMAG 09:54 | PROVIDERS: ATTEND Nuclear Medicine Nuclear Cardiology | DX: I73.9 Peripheral vascular disease, unspecified (principal); Z95.820 Peripheral vascular angioplasty status with implants and grafts ==